=== PATIENT | female | born 1940 | race Caucasian/White ===

== ENCOUNTER → 2019-11-03 10:45 | Outpatient (BNVA) | payer MEDICARE, MEDICAID, SELFPAY | PROVIDERS: Visit Provider Family Medicine | DX: E78.2 Mixed hyperlipidemia (principal); E11.9 Type 2 diabetes mellitus without complications; I10 Essential (primary) hypertension; I50.32 Chronic diastolic (congestive) heart failure; J43.9 Emphysema, unspecified; N32.81 Overactive bladder; J30.9 Allergic rhinitis, unspecified; F41.8 Other specified anxiety disorders; R32 Unspecified urinary incontinence | CPT/HCPCS: 80053; 80061; 83036 ==

== ENCOUNTER → 2020-08-14 11:35 | Outpatient (BNVA) | payer MEDICARE, MEDICAID, SELFPAY | PROVIDERS: PCP Family Medicine; Visit Provider Nurse Practitioner Family | DX: E11.9 Type 2 diabetes mellitus without complications (principal); I10 Essential (primary) hypertension; J30.9 Allergic rhinitis, unspecified; E78.2 Mixed hyperlipidemia; J43.9 Emphysema, unspecified; F41.8 Other specified anxiety disorders; R19.7 Diarrhea, unspecified | CPT/HCPCS: 80053; 80061; 83036; 84443; 85025 ==

== ENCOUNTER → 2021-02-22 10:01 | Outpatient (BNVA) | payer MEDICARE, MEDICAID, SELFPAY | PROVIDERS: PCP Family Medicine; Visit Provider Nurse Practitioner Family | DX: E11.9 Type 2 diabetes mellitus without complications (principal); J90 Pleural effusion, not elsewhere classified | CPT/HCPCS: 71046; 80053; 80061; 83036; 84443; 85025 ==

== ENCOUNTER 2021-02-26 18:15 | Emergency (ER) | payer MEDICARE, MEDICAID, SELFPAY ==
--- NOTE | 2021-02-26 18:41 | ECG_ITS ---
[facility] Test Date: 2021-02-26 Pat Name: Joselyn Flores Department: Room: Gender: Female Regional Engineer: : 1940 Requested By: Eldon Lew Order Number: [id number] Rozina MD: Frandy Cowan M.D. Measurements Intervals Spraggs Rate: 59 P: AL: QRS: -3 QRSD: 141 T: 9 QT: 419 QTc: 418 Interpretive Statements ATRIAL FIBRILLATION WITH SLOW VENTRICULAR RESPONSE INTRAVENTRICULAR CONDUCTION DELAY [130+ ms QRS DURATION] Compared to ECG 07/31/2018 06:14:10 Intraventricular conduction delay now present Sinus bradycardia no longer present Right bundle-branch block no longer present Electronically Signed On 02-27-2021 17:39:05 GANG PUSHER by Frandy Cowan M.D. [id number]
[2021-02-26 18:42] VITALS: PULSE 64; RESP 16; TEMP 36.4; O2SAT 96; BMI 33.1
[2021-02-26 18:58] LABS: Basophils % 0.1 %; Hematocrit 29.1 % (37.0-47.0); Hemoglobin 8.9 g/dL (11.5-15.3); Lymphocytes # 0.5 10^3/uL (0.8-4.8); Lymphocytes % 6.5 %; Mean Corpuscular HGB Conc 30.6 g/dL (30.0-36.0); Mean Corpuscular Hemoglobin 32.5 pg (28.0-34.0); Mean Corpuscular Volume 106.2 fl (81-99); Mean Platelet Volume 9.5 fL (7.4-10.4); Monocytes # 0.4 10^3/uL (0.2-0.9); Monocytes % 5.6 %; Neutrophils # 6.08 10^3/uL (1.8-7.7); Neutrophils % 87.4 %; Nucleated Red Blood Cells % 0 %; Platelet Count 237 10^3/cmm (130-400); Red Blood Count 2.74 10^6/uL (4.1-5.3); Red Cell Distribution Width 13.9 % (12.1-15.1)
--- NOTE | 2021-02-26 19:06 | ED_ITS ---
HPI - Recheck/Abnormal Lab/Rx General: Chief Complaint: Recheck/Abnormal Lab/Rx Stated Complaint: HIGH POTASSIUM (7.3) SENT FROM [facility] Time Seen by Provider: 02/26/21 18:40 Source: patient Mode of arrival: ambulatory Limitations: no limitations History of Present Illness: HPI narrative: 6-year-old female who states that she had blood drawn last week and was told that her potassium was high she states it was redrawn again the day and told it was at 7.2 and told to come to the ER. She denies any vomiting she states that she has been feeling at her baseline she does have COPD was oxygen at baseline she denies any pain or weakness. Review of Systems Const: Denies: fever(s), chills, body aches or change in appetite Eyes: Denies: blurry vision or eye discomfort ENMT: Denies: throat pain or dental pain Card: Denies: chest pain Resp: Denies: dyspnea GI: Denies: abdominal pain, nausea, vomiting or diarrhea : Denies: dysuria Musc: Denies: neck pain or back pain Skin/Breast: Denies: rash Neuro: Denies: headache(s) Psych: Denies: depression Jcarlos/Lymph: Denies: easy bruising All/Imm: Denies: urticaria PFSH ED PFSH: Medical History Allergic rhinitis Anxiety with depression Chronic diastolic CHF (congestive heart failure) Chronic respiratory failure with hypoxia COPD (chronic obstructive pulmonary disease) with emphysema Essential hypertension Hx of cancer of uterus Hyperlipidemia, mixed KYLAH (obstructive sleep apnea) Overactive bladder Panlobular emphysema Type 2 diabetes mellitus Vitamin D deficiency Surgical History H/O: hysterectomy Social History Smoking and tobacco status: former smoker Quit status (tobacco): has quit using tobacco Year quit tobacco: 1987 Second hand smoke exposure: No Alcohol intake: never Desire information about alcohol rehabilitation?: No Desire information about substance/drug rehabilitation?: No Lives independently: Yes Household members: none Marital status: / service: No Current occupational status: retired History of recent travel: No Current gender identity: Female Special orly needs: No Physical Exam Const: COMMON NORMALS: no acute distress and patient oriented x3 GENERAL APPEARANCE: ill appearing HENMT: COMMON NORMALS: normocephalic and atraumatic HEAD & SCALP: normocephalic and atraumatic Eye: COMMON NORMALS: Equal, round and reactive pupils present and EOMs intact bilaterally PUPIL: Yes Equal, round and reactive pupils present Neck/C-Spine: COMMON NORMALS: full ROM and supple Chest: COMMONS NORMALS: normal inspection of the chest and normal palpation of entire chest wall Resp: COMMON NORMALS: normal respiratory effort, No retractions, No use of accessory muscles and clear to auscultation bilaterally AUSCULTATION: clear to auscultation bilaterally Cardio: COMMON NORMALS: regular rate, regular rhythm and No murmurs present (Cardio) RATE: regular rate RHYTHM: regular rhythm GI: COMMON NORMALS: Normal to inspection, nondistended, normoactive bowel sounds present, Soft to palpation, non-tender and no masses PALPATION: Yes Soft to palpation Extremity: COMMON NORMALS: normal to inspection and full ROM Neuro: COMMON NORMALS: patient oriented x3, moves all extremities and no focal motor deficits Psych: COMMON NORMALS: mental status grossly normal, Normal thought process present and cooperative THOUGHT PROCESS: Normal thought process present Skin: COMMON NORMALS: no rashes or lesions noted and no wounds GENERAL SKIN EXAM: no rashes or lesions noted Course Vital Signs: Vital signs: Vital Signs Temperature 97.6 F 02/26/21 18:42 Pulse Rate 60 02/26/21 19:46 Respiratory Rate 24 H 02/26/21 19:46 Blood Pressure 127/51 02/26/21 19:46 Pulse Oximetry 97 02/26/21 19:46 MDM - Recheck/Abnormal Lab/Rx MDM Narrative: Medical decision making narrative: Patient presents here with hyperkalemia which is much improved here potassium here was only 6.0. Patient is well-appearing here believe she is stable for discharge. She is to follow-up with PCP and return if worsening Lab Data: Labs: Lab Results 02/26/21 02/26/21 18:52 18:52 WBC 7.0 10^3/uL 10^3/ uL (4.0-10.0) RBC 2.74 10^6/uL L 10 ^6/uL (4.1-5.3) Hgb 8.9 g/dL L g/dL (11.5-15.3) Hct 29.1 % L % (37.0-47.0) MCV 106.2 fl H fl (81-99) MCH 32.5 pg pg (28.0-34.0) MCHC 30.6 g/dL g/dL (30.0-36.0) RDW 13.9 % % (12.1-15.1) Plt Count 237 10^3/cmm 10^3 /cmm (130-400) MPV 9.5 fL fL (7.4-10.4) Neut % (Auto) 87.4 % % Lymph % (Auto) 6.5 % % Wilcox % (Auto) 5.6 % % Eos % (Auto) 0.0 % % Baso % (Auto) 0.1 % % Neut # (Auto) 6.08 10^3/uL 10^3 /uL (1.8-7.7) Lymph # (Auto) 0.5 10^3/uL L 10^ 3/uL (0.8-4.8) Wilcox # (Auto) 0.4 10^3/uL 10^3/ uL (0.2-0.9) Eos # (Auto) 0.0 10^3/uL 10^3/ uL (0.0-0.8) Baso # (Auto) 0.0 10^3/uL 10^3/ uL (0.0-0.1) Nucleated RBC % (a uto) 0 % % Nucleated RBCs # 0.0 /100WBC /100W BC Sodium 137 mmol/L mmol/L (136-145) Potassium 6.0 mmol/L H mmol /L (3.5-5.1) Chloride 101 mmol/L mmol/L (98-107) Carbon Dioxide 30 mmol/L H mmol/ L (22-29) Anion Gap 12.0 (5-19) BUN 42 mg/dL H mg/dL (8-23) Creatinine 2.1 mg/dL H mg/dL (0.5-0.9) GFR Calculation Not Reportable Glucose 168 mg/dL H mg/dL (65-115) Calculated Osmolal ity 298 mOsm/kg H mOs m/kg (285-295) Calcium 9.0 mg/dL mg/dL (8.5-10.5) Total Bilirubin 0.2 mg/dL mg/dL (0.15-1.2) AST 10 U/L U/L (0-32) ALT 7 U/L U/L (0-33) Alkaline Phosphata se 87 IU/L IU/L (35-105) Total Protein 5.8 g/dL L g/dL (6.6-8.7) Albumin 3.3 g/dL L g/dL (3.5-5.2) Globulin 2.5 g/dL g/dL (1.3-4.6) EKG Data^: EKG 1: Attestation: I personally reviewed and interpreted this EKG as follows: EKG interpretation date: 02/26/21 EKG interpretation time: 18:48 Interpretation: afib hr [address] or t wave abnormalities qrs 141 qtc 419 Discharge Plan Discharge Patient Disposition: Home Clinical Impression: Hyperkalemia Condition: Stable Prescriptions: No Action fluticasone propion-salmeterol [Advair Diskus] 250-50 mcg/dose blister with device See Rx Instructions .ROUTE .COMPLEX Qty: 60 RF: 3 doxycycline hyclate 100 mg capsule 100 mg PO BID Qty: 20 RF: 0 prednisone 20 mg tablet 40 mg PO DAILY Qty: 10 RF: 0 Breztri Aerosphere 160-9-4.8 mcg/actuation HFA aerosol inhaler 2 inh inhalation BID Qty: 10.7 RF: 5 nystatin 100,000 unit/gram cream 1 applic topical BID 14 Days Qty: 30 RF: 0 albuterol sulfate 90 mcg/actuation HFA aerosol inhaler See Rx Instructions .ROUTE .COMPLEX Qty: 18 RF: 3 mupirocin 2 % ointment See Rx Instructions .ROUTE .COMPLEX Qty: 22 RF: 3 atorvastatin 40 mg tablet See Rx Instructions .ROUTE .COMPLEX Qty: 30 RF: 1 tamsulosin 0.4 mg capsule See Rx Instructions .ROUTE .COMPLEX Qty: 30 RF: 1 lisinopril 2.5 mg tablet See Rx Instructions .ROUTE .COMPLEX Qty: 30 RF: 1 furosemide 40 mg tablet See Rx Instructions .ROUTE .COMPLEX Qty: 30 RF: 1 fluticasone propionate 50 mcg/actuation spray,suspension See Rx Instructions .ROUTE .COMPLEX Qty: 16 RF: 1 diltiazem HCl 180 mg capsule,extended release 24hr See Rx Instructions .ROUTE .COMPLEX Qty: 30 RF: 1 sertraline 50 mg tablet See Rx Instructions .ROUTE .COMPLEX Qty: 30 RF: 1 (DME) rolling walker with wheels and seat See Rx Instructions .Route .MEDSUPPLY Qty: 1 RF: 0 Discharge Orders: Discharge ED (Routine); Ordered 02/26/21 Ordered By: Eldon Lew Discharge Diet: Advance as tolerated Discharge Activity: Resume usual activity Patient Instructions: Hyperkalemia (ED) Coding Level of Care Code ED Parts Runner for Karyg Fwd Exam Comprehensive
--- NOTE | 2021-02-26 19:06 | XRR_ITS ---
PROCEDURE INFORMATION: Exam: XR Chest Exam date and time: 02/26/2021 7:06 PM Age: 80 years old Clinical indication: Shortness of breath; Additional info: SOB TECHNIQUE: Imaging protocol: XR of the chest. Views: 1 view. COMPARISON: CR XR chest 2V* [id number] 02/22/2021 10:11 AM FINDINGS: Lungs: There is no focal infiltrate. Pulmonary vascular congestion is improved compared with 02/22/2021. Pleural spaces: There are bilateral pleural effusions. Heart/Mediastinum: The heart is moderately enlarged. Central pulmonary arteries are prominent suggesting some pulmonary hypertension. Bones/joints: Unremarkable. XR/XR chest 1V portable [id number] IMPRESSION: 1. Cardiomegaly and small bilateral pleural effusions. 2. Congestive failure improved compared with 02/22/2021. Radiation Dose CTDIVOL = (mGy): DLP = (mGy-cm)
[2021-02-26 19:22] LABS: Alanine Aminotransferase 7 U/L (0-33); Albumin Level 3.3 g/dL (3.5-5.2); Alkaline Phosphatase 87 IU/L (35-105); Aspartate Amino Transferase 10 U/L (0-32); Blood Urea Nitrogen 42 mg/dL (8-23); Carbon Dioxide 30 mmol/L (22-29); Chloride 101 mmol/L (98-107); Globulin 2.5 g/dL (1.3-4.6); Glucose 168 mg/dL (65-115); Osmolality Calculated 298 mOsm/kg (285-295); Sodium 137 mmol/L (136-145); Total Bilirubin 0.2 mg/dL (0.15-1.2); Total Protein 5.8 g/dL (6.6-8.7)
[2021-02-26 19:46] VITALS: BP 127/51; PULSE 60; RESP 24; O2SAT 97
[2021-02-26] MEDS: sodium chloride 0.9% 500 ML 999 ML IV (20:30)
[2021-02-26 21:15] VITALS: BP 130/92; PULSE 61; RESP 21; O2SAT 96
== END 2021-02-26 21:10 | disposition home or self-care (01) ==
PROVIDERS: Emergency Provider Emergency Medicine
DX: E87.5 Hyperkalemia (principal); Z87.891 Personal history of nicotine dependence; I10 Essential (primary) hypertension; E78.5 Hyperlipidemia, unspecified; J44.9 Chronic obstructive pulmonary disease, unspecified; I50.30 Unspecified diastolic (congestive) heart failure; E11.9 Type 2 diabetes mellitus without complications
CPT/HCPCS: 71045; 80053; 85025; 93005; 99283; J7040